=== PATIENT | female | born 1995 | race Caucasian/White ===

== ENCOUNTER 2019-09-01 12:21 | Day surgery (SDC) | payer OTHER ==
[~2019-09-01] VITALS: Ht 167.6 cm; Wt 121.8 kg
[2019-09-01] VITALS (7 sets, daily range): BP systolic 109–127; BP diastolic 56–76; PULSE 60–93; TEMP 98–98.2
[2019-09-01] MEDS ORDERED: NAPROSYN500 MG PO (12:54)
--- NOTE | 2019-09-01 15:33 | NUR ---
Pt up to void at this time. Informed she should be going to surgery soon and apoligized for the wait.
--- NOTE | 2019-09-01 15:55 | NUR ---
Pt taken via cart to OR by REGGIE Vaca for scheduled surgery. Spouse taken to waiting room.
--- NOTE | 2019-09-01 18:00 | NUR ---
Patient arrived to floor from PACU via bed. Patient is alert and oriented, answers questiosn appropriately. Patient is able to transfer herself from bed to bathroom and from bathroom to chair. Patient denies pain. Patient given water, jello, and ice cream. Post op checks initiated.
--- NOTE | 2019-09-01 20:22 | NUR ---
Pt discharge compelted. All questions asked and answered. Iv taken out of left hand with no issues, CD and tip intact. Walked out by nursing staff.
== END 2019-09-01 20:22 | disposition home or self-care (01) ==
LOC: SDCO 12:21 → SURG 18:00 → SDCO 20:22
DX: N20.0 Calculus of kidney (principal); Z80.8 Family history of malignant neoplasm of other organs or systems; Z80.6 Family history of leukemia; K21.9 Gastro-esophageal reflux disease without esophagitis; F41.9 Anxiety disorder, unspecified; F32.9 Major depressive disorder, single episode, unspecified
CPT/HCPCS: OP; C1769; J0690; J1100; J1885; J2250; J2405; J2704; J3010; J7120; Q9967

== ENCOUNTER → 2019-09-29 | Outpatient (CLI) | payer OTHER ==
[~2019-09-29] VITALS: Ht 167.6 cm; Wt 121.3 kg
[~2019-09-29] MED LIST: IRON TABLETS325 MG PO; NAPROSYN500 MG PO
[2019-09-29 08:08] VITALS: BP 96/60; PULSE 80
== END ==
LOC: LIGHT 07:59
DX: Z68.41 Body mass index [BMI] 40.0-44.9, adult (principal); R73.01 Impaired fasting glucose; E88.81 Metabolic syndrome and other insulin resistance; E78.5 Hyperlipidemia, unspecified
CPT/HCPCS: G0463

== ENCOUNTER → 2019-10-28 | Outpatient (CLI) | payer OTHER ==
[~2019-10-28] VITALS: Ht 167.6 cm; Wt 121.8 kg
[2019-10-28 15:30] VITALS: BP 106/56; PULSE 104
== END ==
LOC: LIGHT 13:36
DX: Z68.41 Body mass index [BMI] 40.0-44.9, adult (principal); E88.81 Metabolic syndrome and other insulin resistance; R73.01 Impaired fasting glucose; D64.9 Anemia, unspecified
CPT/HCPCS: G0463

== ENCOUNTER → 2020-02-24 | Outpatient (CLI) | payer OTHER ==
[~2020-02-24] VITALS: Ht 167.6 cm; Wt 121.1 kg
[2020-02-24 13:34] VITALS: BP 126/60; PULSE 96
== END ==
LOC: LIGHT 13:14
DX: E66.01 Morbid (severe) obesity due to excess calories (principal); Z68.41 Body mass index [BMI] 40.0-44.9, adult; E88.81 Metabolic syndrome and other insulin resistance; R73.01 Impaired fasting glucose; D64.9 Anemia, unspecified
CPT/HCPCS: G0463

== ENCOUNTER → 2020-03-09 | Outpatient (CLI) | payer OTHER ==
[~2020-03-09] MED LIST changes: +B-121000 MCG PO
== END ==
LOC: LIGHT 13:53

== ENCOUNTER → 2020-04-17 | Outpatient (CLI) | payer OTHER ==
[~2020-04-17] VITALS: Ht 167.6 cm; Wt 117.9 kg
[2020-04-17 15:55] VITALS: BP 124/70; PULSE 84
== END ==
LOC: LIGHT 13:28
DX: E66.01 Morbid (severe) obesity due to excess calories (principal); Z68.41 Body mass index [BMI] 40.0-44.9, adult; E88.81 Metabolic syndrome and other insulin resistance; K21.9 Gastro-esophageal reflux disease without esophagitis
CPT/HCPCS: G0463

== ENCOUNTER 2020-05-05 07:35 | Day surgery (SDC) | payer OTHER ==
[~2020-05-05] VITALS: Ht 170.2 cm; Wt 119.3 kg
[2020-05-05 08:51] VITALS: BP 124/82; PULSE 96; TEMP 98.2
[2020-05-05] MEDS ORDERED: PRILOSEC 20MG20 MG PO (09:16)
[2020-05-05 09:42] VITALS: BP 116/61; PULSE 85; TEMP 98.8
[2020-05-05 09:57] VITALS: BP 110/85; PULSE 89
[2020-05-05 10:15] VITALS: BP 97/59; PULSE 88
[2020-05-05 10:30] VITALS: BP 108/63; PULSE 88
[2020-05-05 15:38] VITALS: BP 109/63; PULSE 80
== END 2020-05-05 12:07 | disposition home or self-care (01) ==
LOC: SDCO 07:35
DX: K29.30 Chronic superficial gastritis without bleeding (principal); K21.9 Gastro-esophageal reflux disease without esophagitis; Z20.828 Contact with and (suspected) exposure to other viral communicable diseases; E66.9 Obesity, unspecified; Z68.41 Body mass index [BMI] 40.0-44.9, adult; Z90.49 Acquired absence of other specified parts of digestive tract; D64.9 Anemia, unspecified; E88.81 Metabolic syndrome and other insulin resistance
CPT/HCPCS: J2250; J3010; J7030

== ENCOUNTER → 2020-05-09 | Outpatient (CLI) | payer OTHER ==
[~2020-05-09] MED LIST changes: +PRILOSEC 20MG20 MG PO
== END ==
LOC: BHSO 09:09

== ENCOUNTER 2020-05-19 08:14 | Inpatient (IN) | payer OTHER ==
[~2020-05-19] VITALS: Ht 167.6 cm; Wt 117.3 kg
[2020-05-31] VITALS (11 sets, daily range): BP systolic 111–150; BP diastolic 57–81; PULSE 83–105; TEMP 97.8–98.9
[2020-05-31] MEDS ORDERED: BIRTH CONTROL (10:12)
--- NOTE | 2020-05-31 12:36 | NUR ---
Patient to room from PACU via bed. Alert and oriented x3, drowsy at times. Rates pain in abd 4/10, feels like a pressure. Would like to get up to walk as soon as possible to try to help move some of the gas. Lap sites x4 to abd with bandaids CDI. Isaias drain compressed with scan amount of serous fluid in bulb/tubing. Oriented to room. Spouse at bedside.
--- NOTE | 2020-05-31 12:47 | NUR ---
Patient ambulates in halls around nursing station, to IPR and then back to room. Gait slow and steady. Returns to bed at this time.
--- NOTE | 2020-05-31 13:10 | NUR ---
Patient provided with 8oz blue gatorade. Explain that she will need to try to drink it before they come to do her xray. Patient verbalizes understanding. Spouse in room with the patient.
--- NOTE | 2020-05-31 14:19 | NUR ---
Patient to radiology via wheelchair for barium swallow.
--- NOTE | 2020-05-31 14:33 | NUR ---
Patient back to room from radiology via wheelchair. Radiology reports that there were no leaks seen on exam. Provided patient with cup of ice water. Patient denies additional needs at this time. in room with the patient.
--- NOTE | 2020-05-31 15:39 | NUR ---
Patient had episode of emesis, brown green in color with some areas of red streaks. Reassured patient and her spouse. Patient cleaned. Sitting up in chair, bed changed. Zofran administered as prescribed. Patient says that she feels a little better, like some of the air chest pressure was alleviated when she vomited. Denies additional needs at this time.
--- NOTE | 2020-05-31 16:14 | NUR ---
Lying in bed with eyes open watching TV. Spouse at bedside. Patient feels that the Zofran has helped decrease her nausea. Denies needs at this time.
--- NOTE | 2020-05-31 17:37 | NUR ---
Patient lying in bed with eyes open watching TV. Patient says that she is feeling good at this time. Denies any additional needs at this time. Did not want to eat clear liquid dinner at this time. Explained clear liquid options that we have available if she would like something later.
[2020-06-01 00:31] VITALS: BP 150/62; PULSE 93; TEMP 98.5
--- NOTE | 2020-06-01 03:19 | NUR ---
Pt currently resting in bed. Pt has not complained of pain since she was given pain medication earlier. Pt did have 30cc out of her drain. Pt stated that she did vomit earlier. I asked her if she needed something for nausea and she stated that she didn't need anything for nausea. Pt has been able to tolerate water pt has no requested anything else. Pt was offered a warm blanket for her abdomen earlier because she had a little pain, she stated that the pain was better. Pt has her call light within reach.
[2020-06-01 03:58] VITALS: BP 141/60; PULSE 92; TEMP 98.6
--- NOTE | 2020-06-01 07:36 | NUR ---
Reported off to REGGIE Amezquita. Pt did have some nausea while in giving report. Pt was informed that the deputy director of nursing would give her somethig for nausea. Pt has rested well during the night but she was cold this morning and was given a warm blanket at this time.
[2020-06-01 07:42] VITALS: BP 148/70; PULSE 92; TEMP 98.7
--- NOTE | 2020-06-01 08:49 | NUR ---
Patient alert and oriented, answers questions appropriately. See assessment. Abdomen soft, non tender, non distended. Bowel sounds active x4 quads. No flatus. Lap sites with edges well approximated, no redness or drainage noted. JARAD drain to LLQ to bulb compression, scant amount of serosanguinous drainage noted. Post op exercises reviewed with patient. No c/o at this time.
--- NOTE | 2020-06-01 09:10 | NUR ---
JARAD to bulb suction. removed per physician order. suture cut and pulled, pressure held on site with 4x4's, drain pulled. covered with a sterile 4x4 gauze and tegaderm. pt tolerated well.
--- NOTE | 2020-06-01 09:40 | NUR ---
YADI met with the patient to discuss discharge plan. The patient lives on [address] with her , Gustavo (ph#[phone]). She reports independence with ADLs and does not have any DME. The patient's primary care provider is Ana Kenney on [address] and she receives her medications at [facility]. The patient does not have a DPOA-HC and she was not interested in completing a DPOA-HC at this time. The patient plans to return home with her upon discharge. No additional needs at this time.
--- NOTE | 2020-06-01 11:14 | NUR ---
First visit from the lining mechanic. No needs right now.
[2020-06-01 11:53] VITALS: BP 130/64; PULSE 85; TEMP 98.6
--- NOTE | 2020-06-01 12:15 | NUR ---
Dr Thomas here to see patient.
[2020-06-01] MEDS ORDERED: NORCO 325 MG-51 TAB PO (12:19)
[2020-06-01] MEDS ORDERED: ZOFRAN 4MG T4 MG/TAB PO (12:19)
--- NOTE | 2020-06-01 13:08 | NUR ---
Discharge instructions reviewed with patient. Patient verbalized understanding. Patient left with all of her belongings to home at 1:10.
== END 2020-06-01 13:15 | disposition home or self-care (01) | DRG 621 ==
LOC: INPTSU 05-31 08:45 → SURG 05-31 10:30
PROVIDERS: ADMIT Surgery
PROC: 0DB64Z3 Excision of Stomach, Percutaneous Endoscopic Approach, Vertical (ICD-10-PCS; principal; 2020-05-31 10:30)
DX: E66.01 Morbid (severe) obesity due to excess calories (principal); K21.9 Gastro-esophageal reflux disease without esophagitis; Z68.41 Body mass index [BMI] 40.0-44.9, adult
CPT/HCPCS: A9284; J0330; J0690; J1100; J1170; J1885; J2405; J2550; J2704; J3010; J7120

== ENCOUNTER 2020-07-05 13:23 | Day surgery (SDC) | payer OTHER ==
[~2020-07-05] VITALS: Ht 170.2 cm; Wt 107.1 kg
[~2020-07-05 13:23] MED LIST changes: +BIOTIN10000 MC1 PO; +BIRTH CONTROL; +CALCIUM CITRATE1 TA1 CHEW; +FLINTSTONES COM1 CT1 PO; +NORCO 325 MG-51 TAB PO; +ZOFRAN 4MG T4 MG/TAB PO
[2020-07-05] MEDS ORDERED: MACROBID 1100 MG/CAP PO (14:31)
[2020-07-05] MEDS ORDERED: FLOMAX 0.40.4 MG/CAP PO (14:31)
[2020-07-05] MEDS ORDERED: OXY IR5 MG PO (14:32)
[2020-07-05 14:36] VITALS: BP 112/77; PULSE 103; TEMP 99.3
[2020-07-05 18:10] VITALS: BP 121/61; PULSE 84; TEMP 98.4
--- NOTE | 2020-07-05 18:10 | NUR ---
Pt to [facility] via cart from PACU. Pt drowsy, but awake and alert. Pt denies pain or nausea. Pt up to restroom and voids without difficulties. Pt back to room. Water and crackers given per pt request. Will continue to monitor. in room. Call light within reach.
[2020-07-05 18:25] VITALS: BP 117/58; PULSE 81
--- NOTE | 2020-07-05 18:25 | NUR ---
Pt tolerating food and fluids without difficulties. Pt denies needs. Call light within reach.
[2020-07-05 18:40] VITALS: BP 124/70; PULSE 86
--- NOTE | 2020-07-05 18:40 | NUR ---
Discharge instructions reviewed. Pt voices understanding. Pt c/o "heaviness" to her stomach. Zofran 4mg IVSP given to help prevent nausea on way home. IV site then DC'd with all parts intact. Pt up to dress. Call light within reach.
--- NOTE | 2020-07-05 19:00 | NUR ---
Pt escorted to private car via wheel chair. Pt accompanied home by her .
== END 2020-07-05 19:00 | disposition home or self-care (01) ==
LOC: SDCO 13:23
DX: N20.0 Calculus of kidney (principal); Q63.1 Lobulated, fused and horseshoe kidney; Z80.6 Family history of leukemia; K21.9 Gastro-esophageal reflux disease without esophagitis; D64.9 Anemia, unspecified
CPT/HCPCS: C1769; C2617; J0690; J1100; J1885; J2405; J2704; J3010; J7120; Q9967